=== PATIENT | female | born 1965 | race Caucasian/White ===

== ENCOUNTER 2018-10-08 15:34 | Emergency (ER) | payer BC, OTHER, SELFPAY ==
[2018-10-08 15:43] VITALS: BP 133/74; PULSE 56; RESP 16; TEMP 37.2; O2SAT 100
[2018-10-08 16:08] LABS: Bilirubin Negative (Negative); Blood Negative (Negative); Clarity Clear (Clear); Glucose Negative (Negative); Ketones Negative (Negative); Leukocyte Esterase Trace (Negative); Nitrite Negative (Negative); Urobilinogen 0.2 EU/dL (Up TO 0.2); pH 6.5 (5-8)
[2018-10-08 16:19] LABS: Bacteria Moderate HPF (Negative); Epithelial Cells Rare HPF (Negative); RBC Negative (0-2)
[2018-10-08 16:20] LABS: C & S Indicated? Yes; Casts Negative LPF (Negative); Crystals Negative HPF (Negative); Mucus Negative (Negative)
--- NOTE | 2018-10-08 17:00 | W.ED.GENAD ---
Discharge Plan Disposition Patient Disposition: HOME Condition: Stable Discharge Details Chief Complaint: Urinary Clinical Impression: UTI (urinary tract infection), Lumbar strain Primary Care Provider: Dayna,Local ED Provider: Nicole Ji Home Meds and New Rx's Prescriptions: New sulfamethoxazole-trimethoprim [Bactrim DS] 800-160 mg tablet 1 tab PO BID 5 Days Qty: 10 RF: 0 methocarbamol [Robaxin-750] 750 mg tablet 750 mg PO QID PRN (Reason: muscle spasm) Qty: 10 RF: 0 Continued multivitamin Tablet 1 tab PO QAM RF: 0 Probiotic 3 billion cell Capsule 3,000 mmu cells PO DAILY RF: 0 Discharge Instructions Instructions: Urinary Tract Infection in Women (ED), Low Back Strain (ED) Additional Instructions: Take the antibiotic's until finished. Continue to alternate Tylenol Motrin as needed and directed for your back pain. Take the muscle relaxer as needed and directed. Follow-up with your primary care doctor in 1 week for reevaluation. Return immediately to the emergency department if you develop any worsening or concerning symptoms of fever, increased pain, numbness, weakness or bowel or bladder incontinence. Discharge Data Discharge Date/Time-TO BE ENTERED AT DEPARTURE: 10/08/18 18:33 Discharge Physician: Nicole Ji Medical Decision Making 52-year-old female visiting from [place] who presents with urinary urgency for the past week. Also complaining of lower back pain that has persisted since a lower back strain while playing tennis 2 weeks ago. She admits to radiation of pain from her left lower back down to her left leg with some left leg paresthesias but otherwise denies any urinary or fecal incontinence, saddle anesthesia. She has no focal deficits. She is neurovascular intact. Urinalysis done on arrival notes 10-20 WBCs likely consistent with infection. Suspect her back pain appears more musculoskeletal/sciatica as she has no CVA tenderness and appears nontoxic and comfortable. Doubt pyelo as she has no fever, n/v, but will check screening labs to assess renal function. Labs reviewed and unremarkable. Normal white blood cell count. Normal renal function. Patient feels good to go home. Will give a prescription for Bactrim as well as Robaxin. Patient given dose of Bactrim here. She is instructed to alternate Tylenol and Motrin, ice and heat, follow-up with her primary care doctor next week and to return here if she has any worsening or new concerning symptoms of fever, vomiting, pain, numbness weakness or bowel or bladder incontinence. Medical Records Medical records reviewed: Yes I reviewed the patient's medical records. Lab Data Lab results reviewed: Yes I reviewed the patient's lab results. 10/08/18 16:00 Urine - Reflex from [facility] Urine Culture - Pending Laboratory Tests Range/Units 10/08/18 10/08/18 10/08/18 16:00 17:50 17:50 WBC (4.4-10.8) k/cumm 4.70 RBC (4.00-5.20) m/cumm 4.19 Hgb (12.0-15.5) g/dL 11.8 L Hct (36.0-46.0) % 35.6 L MCV (80-95) fL 85.0 MCH (27.0-33.0) pg 28.2 MCHC (32.0-36.0) g/dL 33.1 RDW (11.7-14.6) % 13.6 Plt Count (130-400) x1000/uL 220 MPV (8.0-11.0) fL 9.4 Immature Gran % 0.0 Neutrophils % 48.5 Lymphocytes % 39.6 Monocytes % 7.9 Eosinophils % 3.6 Basophils % 0.4 Absolute Neutrophils (1.2-6.7) k/cumm 2.28 Absolute Lymphocytes (1.2-3.4) k/cumm 1.86 Absolute Monocytes (0.11-0.7) k/cumm 0.37 Absolute Eosinophils (0.0-0.7) k/cumm 0.17 Absolute Basophils (0.0-0.2) k/cumm 0.02 Sodium (136-145) mmol/L 138 Potassium (3.5-5.1) mmol/L 3.9 Chloride (98-107) mmol/L 103 Carbon Dioxide (21.0-32.0) mmol/L 29.1 Anion Gap (3-11) mmol/L 5.9 BUN (7-18) mg/dL 19 H Creatinine (0.55-1.02) mg/dL 0.85 Estimated GFR/1.73 m2 (mL/min/1.73m2) >= 60.00 Glucose (70-100) mg/dL 87 Calcium (8.5-10.1) mg/dL 9.0 Urine Color (Yellow) Straw Urine Clarity (Clear) Clear Urine pH (5-8) 6.5 Ur Specific Gerber (1.005-1.025) 1.010 Urine Protein (Negative) mg/dL Negative Urine Ketones (Negative) mg/dL Negative Urine Blood (Negative) Negative Urine Nitrite (Negative) Negative Urine Bilirubin (Negative) Negative Urine Urobilinogen (Up TO 0.2) EU/dL 0.2 Ur Leukocyte Esterase (Negative) Trace H Urine RBC (0-2) Negative Urine WBC (0-5) HPF 10-20 Ur Epithelial Cells (Negative) HPF Rare Urine Crystals (Negative) HPF Negative Urine Bacteria (Negative) HPF Moderate Urine Casts (Negative) LPF Negative Urine Mucus (Negative) Negative Ur Culture Indicated? Yes Urine Glucose (Negative) mg/dL Negative HPI General Mode of arrival: ambulatory. Date/Time Provider Initiated Documentation: 10/08/18 16:12. Limitations to Documentation: no limitations. Information obtained by: patient. HPI Narrative: Patient is a 52-year-old female who is visiting from [place] who presents with urinary urgency for the past week. She has a history of urinary tract infections and was concerned that she was developing one. She also states that she through out my back 2 weeks ago while playing tennis. She states that the back pain has persisted since then and is radiating down into her left buttock with numbness down her left leg. She denies any fever, nausea, vomiting, abdominal pain, urinary frequency, dysuria, hematuria, urinary or fecal incontinence, saddle anesthesia, leg weakness. She is taking ibuprofen for back pain without relief. She has also seen her chiropractor. She states she feels that her urinary symptoms may be different from her back pain but she was unsure if they are related. Related Data Home Medications Medication Instructions Recorded Confirmed Probiotic 3,000 mmu cells PO DAILY 10/08/18 10/08/18 methocarbamol [Robaxin-750] 750 mg PO QID PRN #10 tab 10/08/18 multivitamin 1 tab PO QAM 10/08/18 10/08/18 sulfamethoxazole-trimethoprim 1 tab PO BID 5 Days #10 tab 10/08/18 [Bactrim DS] Previous Rx's Medication Instructions Recorded methocarbamol [Robaxin-750] 750 mg PO QID PRN #10 tab 10/08/18 sulfamethoxazole-trimethoprim 1 tab PO BID 5 Days #10 tab 10/08/18 [Bactrim DS] Allergies Allergy/AdvReac Type Severity Reaction Status Date / Time amoxicillin Allergy Severe Hives Unverified 10/08/18 16:00 General Stated Complaint: Urinary JAMMIE: 3 Review of Systems Review of Systems All systems reviewed & are unremarkable except as noted in HPI and below Constitutional Reports as per HPI, Denies chills and Denies fever(s) Eyes Denies blurry vision ENT Denies dizziness, Denies sore throat and Denies throat swelling Cardiovascular Denies chest pain and Denies dyspnea Respiratory Denies cough and Denies dyspnea Gastrointestinal Denies abdominal pain, Denies diarrhea and Denies vomiting Genitourinary Denies hematuria, Denies dysuria and Reports other (urinary urgency) Musculoskeletal Reports back pain and Denies numbness Integumentary/Breasts Denies lesions and Denies rash Neurologic Denies dizziness, Denies focal weakness and Denies numbness Allergic/Immunologic Denies throat swelling PFSH Medical History No active medical problems (Acute) Surgical History H/O section (Chronic) History of tonsillectomy and adenoidectomy (Acute) Social History Smoking/Tobacco Use Status: Never Alcohol Intake: current Alcohol Intake frequency: a few times a month Alcohol type: beer and wine Drug use: Never Substance use type: does not use Do you feel safe at home: Yes Do you feel safe in your relationship?: Yes Exam Const General: cooperative, healthy appearing and no acute distress HENMT Head: normal to inspection Face and sinus: normal facial exam Eyes General: appearance normal, both eyes and all related structures Pupils: PERRL EOM: EOM intact bilaterally Neck Neck: normal visual inspection and No submandibular swelling Lymphatic: no lymphadenopathy noted Chest Chest: normal inspection of the chest and no tenderness Resp Effort & Inspection: normal respiratory effort and able to speak in complete sentences Auscultation: clear to auscultation bilaterally Cardio Rate: regular rate Rhythm: regular rhythm GI Inspection: normal to inspection Palpation: soft, not firm, not rigid and nontender Auscultation: normal bowel sounds Back/Spine/Pelvis Back: no CVA tenderness Thoracic/Lumbar Spine: thoracic and lumbar spine normal to inspection and paraspinal tenderness (lower L lumbar tenderness) Pelvis: no pain with anterior-posterior compression Skin General skin exam: no rashes or lesions noted Neuro General: alert, awake, oriented x3 and moves all extremities Cognition: normal cognition Speech: speech normal Motor: muscle tone normal throughout and strength 5/5 throughout Sensory Exam: no sensory deficits noted DTR's: Rt Patellar: 1+, Lt Patellar: 1+, Rt Ankle: 1+ and Lt Ankle: 1+ Plantar Reflexes: Equivocal: bilateral Other: Negative babinski b/l. Extrem General: normal to inspection, full ROM, normal capillary refill, no calf tenderness bilaterally and no edema Other: B/L DP/PT pulses intact. Psych Appearance: grossly normal Mental Status: mental status grossly normal Speech and Movement: speech and movement normal Affect: normal affect Course Vital Signs Temperature 99.0 F 10/08/18 15:43 Pulse 56 L 10/08/18 15:43 Respiratory Rate 16 10/08/18 15:43 Blood Pressure 133/74 10/08/18 15:43 Pulse Oximetry 100 10/08/18 15:43 Temperature 99.0 F 10/08/18 15:43 Temperature Source Skin 10/08/18 15:43 Pulse 56 L 10/08/18 15:43 Respiratory Rate 16 10/08/18 15:43 Respiratory Effort Non-Labored 10/08/18 15:58 Blood Pressure 133/74 10/08/18 15:43 Pulse Oximetry 100 10/08/18 15:43 Pain Level 4 10/08/18 15:58 Lab/Test Results Lab/Test Results: 10/08/18 16:00 Urine - Reflex from [facility] Urine Culture - Pending Laboratory Tests Range/Units 10/08/18 16:00 Urine Color (Yellow) Straw Urine Clarity (Clear) Clear Urine pH (5-8) 6.5 Ur Specific Gerber (1.005-1.025) 1.010 Urine Protein (Negative) mg/dL Negative Urine Ketones (Negative) mg/dL Negative Urine Blood (Negative) Negative Urine Nitrite (Negative) Negative Urine Bilirubin (Negative) Negative Urine Urobilinogen (Up TO 0.2) EU/dL 0.2 Ur Leukocyte Esterase (Negative) Trace H Urine RBC (0-2) Negative Urine WBC (0-5) HPF 10-20 Ur Epithelial Cells (Negative) HPF Rare Urine Crystals (Negative) HPF Negative Urine Bacteria (Negative) HPF Moderate Urine Casts (Negative) LPF Negative Urine Mucus (Negative) Negative Ur Culture Indicated? Yes Urine Glucose (Negative) mg/dL Negative
[2018-10-08] MEDS: Methocarbamol 500 MG TAB PO (17:37)
[2018-10-08 17:58] LABS: Absolute Basophil Count 0.02 k/cumm (0.0-0.2); Absolute Eosinophil Count 0.17 k/cumm (0.0-0.7); Absolute Lymphocyte Count 1.86 k/cumm (1.2-3.4); Absolute Monocyte Count 0.37 k/cumm (0.11-0.7); Absolute Neutrophil Count 2.28 k/cumm (1.2-6.7); Basophils % 0.4; Eosinophils % 3.6; HCT 35.6 % (36.0-46.0); HGB 11.8 g/dL (12.0-15.5); Lymphocytes % 39.6; Mean Corp. HGB Concentration 33.1 g/dL (32.0-36.0); Mean Corpuscular Hemoglobin 28.2 pg (27.0-33.0); Mean Platelet Volume 9.4 fL (8.0-11.0); Monocytes % 7.9; Neutrophils % 48.5; Platelet Count 220 x1000/uL (130-400); RBC 4.19 m/cumm (4.00-5.20); RBC Distribution Width 13.6 % (11.7-14.6)
[2018-10-08 18:05] LABS: Anion Gap 5.9 mmol/L (3-11); BUN 19 mg/dL (7-18); CO2 29.1 mmol/L (21.0-32.0); CREATININE 0.85 mg/dL (0.55-1.02); Chloride 103 mmol/L (98-107); Glucose 87 mg/dL (70-100); Potassium 3.9 mmol/L (3.5-5.1); Sodium 138 mmol/L (136-145)
[2018-10-08 18:27] VITALS: BP 131/72; PULSE 56; RESP 16; O2SAT 98
[2018-10-08] MEDS: Sulfameth/Trimeth DS TAB 1 TAB PO (18:27)
== END 2018-10-08 18:33 | disposition home or self-care (01) ==
PROVIDERS: Emergency Provider Physician Assistant
DX: N39.0 Urinary tract infection, site not specified (principal); B96.20 Unspecified Escherichia coli [E. coli] as the cause of diseases classified elsewhere; S39.012A Strain of muscle, fascia and tendon of lower back, initial encounter; X50.3XXA Overexertion from repetitive movements, initial encounter; Y93.73 Activity, racquet and hand sports
CPT/HCPCS: 36415; 80048; 87077; 99283; 81003; 81015; 85025; 87086; 87186